=== PATIENT | female | born 1965 | race Caucasian/White ===

== ENCOUNTER 2016-12-21 07:22 | Day surgery (SDC) | payer BC ==
[~2016-12-21 07:22] MED LIST: Lactated Ringers 1,000 ML IV SCH
[2016-12-21] MEDS ORDERED: Propofol 200 MG/20 ML SDV ONE (09:35)
[2016-12-21] MEDS ORDERED: fentaNYL 100 MCG/2 ML SDV ONE (09:36)
[2016-12-21 10:26] VITALS: BP 150/63
--- NOTE | 2016-12-21 13:51 | OR ---
PREOPERATIVE DIAGNOSIS: Positive FIT test. POSTOPERATIVE DIAGNOSES: 1. Rectal sigmoid polyps x3, removed. 2. Mild diverticulosis. PROCEDURE PROPOSED: Total flexible colonoscopy. PROCEDURE DONE: Total flexible colonoscopy with polypectomy x3. INDICATION: This is a 51-year-old female, who was found to have guaiac-positive stool on annual physical and was referred for colonoscopy. TECHNIQUE: The patient brought to the endoscopy suite and placed in left lateral decubitus position. She was sedated with propofol per [facility] THERAPY CLINICIAN. The flexible video colonoscope was then passed transanally and under visualization, advanced to the cecum. Examination revealed a normal ascending transverse descending colon. The sigmoid colon revealed some mild diverticulosis and she was also noted to have a couple of polyps, one at 25 cm and another one at 15 cm. They were both removed by hot snare technique and retrieved with suction. She had a 3rd polyp in the rectum also removed by hot snare technique and retrieved with suction. They were all submitted for pathologic examination and the remainder of the exam was normal and the scope was then withdrawn. The patient tolerated the procedure well. FINAL IMPRESSION: 1. Rectosigmoid polyps x3, removed. 2. Mild sigmoid diverticulosis. PLAN: She will be sent a letter with pathology report and I felt that she should have a repeat exam in 5 years' time. SCM: 12/21/2016 10:03:34 MODL: 12/21/2016 13:42:39 /[id number]
== END 2016-12-21 10:45 | disposition home or self-care (01) ==
LOC: VM.SDS 07:22
PROVIDERS: ATTEND Surgery
PROC: 0DBP8ZZ Excision of Rectum, Via Natural or Artificial Opening Endoscopic (ICD-10-PCS; principal; 2016-12-21)
PROC: 0DBN8ZZ Excision of Sigmoid Colon, Via Natural or Artificial Opening Endoscopic (ICD-10-PCS; 2016-12-21)
DX: D12.5 Benign neoplasm of sigmoid colon (principal); D12.8 Benign neoplasm of rectum; K57.30 Diverticulosis of large intestine without perforation or abscess without bleeding; Z80.0 Family history of malignant neoplasm of digestive organs; E78.1 Pure hyperglyceridemia; L68.0 Hirsutism; G25.81 Restless legs syndrome; G43.909 Migraine, unspecified, not intractable, without status migrainosus; Z87.891 Personal history of nicotine dependence
CPT/HCPCS: 45385; J2704; J3010; J7120

== ENCOUNTER 2017-07-03 07:30 | Day surgery (SDC) | payer BC ==
[~2017-07-03 07:30] MED LIST changes: +ceFAZolin 1 GM Vial IVPUSH ONE
[2017-07-03] MEDS ORDERED: Acetaminophen 1,000 MG in Premix Bag 1 BAG IV ONE (08:10)
[2017-07-03] MEDS ORDERED: Ondansetron 4 MG/2 ML SDV IVPUSH PRN (08:10)
[2017-07-03] MEDS ORDERED: Midazolam 1 MG/ML 2 ML SDV ONE (08:17)
[2017-07-03] MEDS ORDERED: fentaNYL 100 MCG/2 ML SDV ONE (08:17)
[2017-07-03] MEDS ORDERED: Propofol 200 MG/20 ML SDV ONE (08:17)
[2017-07-03] MEDS ORDERED: Succinylcholine 200 MG/10 ML MDV ONE (08:48)
[2017-07-03] MEDS ORDERED: ceFAZolin 1 GM Vial ONE (09:01)
[2017-07-03] MEDS ORDERED: Bupivacaine 0.25%/EPINEPHrine 1:200,000 30 ML SDV ONE (09:04)
[2017-07-03] MEDS ORDERED: Ketamine 200 MG/20 ML MDV ONE (09:15)
[2017-07-03] MEDS ORDERED: Bupivacaine 0.25%/EPINEPHrine 1:200,000 30 ML SDV INFILT ONE ×2 (09:28)
[2017-07-03] MEDS ORDERED: Lactated Ringers 1,000 ML ONE (10:11)
[2017-07-03] MEDS ORDERED: Ketorolac 30 MG/ML SDV ONE (10:39)
[2017-07-03] MEDS ORDERED: Ibuprofen 200 MG Tab PO PRN (12:53)
[2017-07-03 13:39] VITALS: BP 134/64
--- NOTE | 2017-07-03 16:14 | OR ---
PREOPERATIVE DIAGNOSIS: Symptomatic cholelithiasis. POSTOPERATIVE DIAGNOSIS: Symptomatic cholelithiasis. PROCEDURE PROPOSED: Laparoscopic cholecystectomy. PROCEDURE DONE: Laparoscopic cholecystectomy. WET ROASTER: linda Garcia. INDICATION: This is a 52-year-old female bothered with symptomatic right upper quadrant pain, is confirmed to have gallstones, and she comes in now for elective gallbladder removal. FINDINGS: The patient's gallbladder was found to be moderately stuck into the liver bed. She had multiple large and small stones with thick bile. TECHNIQUE: The patient was brought to the operative suite, given a general endotracheal anesthetic. The abdomen was then sterilely prepped and draped. The trocar sites were locally anesthetized with 0.25% Marcaine with epinephrine. A Veress needle was inserted through the infraumbilical region and pneumoperitoneum was established followed by insertion of a 10 mm trocar. The video endoscope was then inserted and 3 other 5 mm trocars were inserted under visualization across the right upper abdomen. The gallbladder was then grasped and retracted cephalad and the cystic duct area was dissected out. I was able to isolate the cystic artery, which was wet clipped and divided. The cystic duct was then isolated and doubly wet clipped and divided. The gallbladder was then removed in an anterograde fashion from the liver bed with the hook cautery technique. Hemostasis was obtained with cautery in the liver bed as the gallbladder was then placed into a specimen bag. This was brought out through the infraumbilical trocar site, which required some further extension because of the large size of the stones. This then required a [id number] stitch of 0 Vicryl suture reapproximated the fascia. The pneumoperitoneum was expelled and the trocar sites were then closed with subcuticular stitches on the skin level using 4-0 Vicryl. Bandages were applied. She tolerated the procedure well with an estimated blood loss of 20 mL. She was awakened and taken to the recovery room in good condition. SCM: 07/03/2017 10:34:13 MODL: 07/03/2017 16:02:49 /[id number]
== END 2017-07-03 13:57 | disposition home or self-care (01) ==
LOC: VM.SDS 07:30
PROVIDERS: ATTEND Surgery
DX: K80.10 Calculus of gallbladder with chronic cholecystitis without obstruction (principal); E78.00 Pure hypercholesterolemia, unspecified; Z79.899 Other long term (current) drug therapy; Z87.891 Personal history of nicotine dependence
CPT/HCPCS: 47562; A9270; J0330; J0690; J1885; J2250; J2405; J2704; J3010; J7120

== ENCOUNTER 2022-03-01 09:12 | Day surgery (SDC) | payer BC ==
[~2022-03-01 09:12] MED LIST changes: -ceFAZolin 1 GM Vial IVPUSH ONE
[2022-03-01] MEDS ORDERED: Propofol 200 MG/20 ML SDV ONE ×3 (10:57→12:21)
[2022-03-01] MEDS ORDERED: fentaNYL 100 MCG/2 ML SDV ONE (10:57)
[2022-03-01 13:30] VITALS: BP 117/60; PULSE 51
== END 2022-03-01 13:50 | disposition home or self-care (01) ==
LOC: VM.SDS 09:12
PROVIDERS: ATTEND Family Medicine
DX: Z12.11 Encounter for screening for malignant neoplasm of colon (principal); K63.5 Polyp of colon; K57.30 Diverticulosis of large intestine without perforation or abscess without bleeding; K63.89 Other specified diseases of intestine; G43.919 Migraine, unspecified, intractable, without status migrainosus; F51.04 Psychophysiologic insomnia; E66.01 Morbid (severe) obesity due to excess calories; G25.81 Restless legs syndrome; D18.09 Hemangioma of other sites; Z98.890 Other specified postprocedural states; Z86.010 Personal history of colon polyps; Z80.0 Family history of malignant neoplasm of digestive organs; Z79.899 Other long term (current) drug therapy; Z87.891 Personal history of nicotine dependence; Z68.37 Body mass index [BMI] 37.0-37.9, adult
CPT/HCPCS: 00811; J2704; J3010; J7120

== ENCOUNTER 2025-03-04 07:45 | Day surgery (SDC) | payer BC ==
[2025-03-04] MEDS: Lactated Ringers 1,000 ML IV SCH (08:11)
[2025-03-04] MEDS ORDERED: Propofol 200 MG/20 ML SDV ONE (09:12)
[2025-03-04] MEDS ORDERED: Midazolam 1 MG/ML 2 ML SDV ONE (09:13)
[2025-03-04] MEDS ORDERED: fentaNYL 100 MCG/2 ML SDV ONE (09:13)
[2025-03-04 09:57] VITALS: BP 122/68; PULSE 59
== END 2025-03-04 10:44 | disposition home or self-care (01) ==
LOC: VM.SDS 07:45
PROVIDERS: ATTEND Family Medicine
DX: K57.31 Diverticulosis of large intestine without perforation or abscess with bleeding (principal); K64.9 Unspecified hemorrhoids; E66.812 Obesity, class 2; Z68.38 Body mass index [BMI] 38.0-38.9, adult; Z86.0100 Personal history of colon polyps, unspecified; Z87.891 Personal history of nicotine dependence
CPT/HCPCS: 00811; 45380; J2250; J2704; J3010; J7120